=== PATIENT | female | born 1985 | race Hispanic/Latino ===

== ENCOUNTER 2016-11-24 01:00 | Emergency (ER) | payer OTHER ==
[2016-11-24 01:25] VITALS: O2SAT 100
--- NOTE | 2016-11-24 01:48 | C.PDOC ---
History Of Present Illness 31 year old female who presents to the ER after she was out drinking at a bar and fell, sustaining abrasions to the bilateral knees and a cut to the left cheek. is accompanied patient; however, states he was not there at the time of the fall. Patient denies LOC, nausea, or vomiting. Time Seen by Provider: 11/24/16 01:21 Chief Complaint (Nursing): Trauma History Per: Patient History/Exam Limitations: no limitations Onset/Duration Of Symptoms: Hrs Current Symptoms Are (Timing): Still Present Location Of Injury: Right: Knee, Left: Face (Cheek), Knee Quality Of Symptoms: Other (Abrasions) Recent travel outside of the [place]: No Past Medical History Reviewed: Historical Data, Nursing Documentation, Vital Signs Vital Signs: Last Vital Signs Temp 98.1 F 11/24/16 02:03 Pulse 88 11/24/16 02:03 Resp 20 11/24/16 02:03 BP 111/66 11/24/16 02:03 Pulse Ox 100 11/24/16 02:25 - Medical History PMH: No Chronic Diseases Surgical History: No Surg Hx Family History: States: Unknown Family Hx - Social History Hx Alcohol Use: Yes Hx Substance Use: No - Immunization History Hx Tetanus Toxoid Vaccination: No Hx Influenza Vaccination: No Hx Pneumococcal Vaccination: No Review Of Systems Gastrointestinal: Negative for: Nausea, Vomiting Skin: Positive for: Other (Abrasion, Laceration) Neurological: Negative for: Headache, Other (LOC) Physical Exam - Physical Exam Appears: Non-toxic, Other (ETOH on breath) Skin: Warm, Dry Head: Normacephalic, Other (0.5 cm linear laceration and abrasion with no active bleeding to left cheek) Eye(s): bilateral: Normal Inspection, PERRL, EOMI Nose: Normal, No Epistaxis, No Tenderness Oral Mucosa: Moist, No Trismus Tongue: Normal Appearing, No Swelling, No Bite Lips: Normal Appearing, No Abrasion, No Laceration Teeth: Normal Dentition Neck: Normal, No Midline Cervical Tenderness, No Paracervical Tenderness, Supple Chest: Symmetrical Cardiovascular: Rhythm Regular Respiratory: Normal Breath Sounds, No Accessory Muscle Use Extremity: Normal ROM (x4), No Deformity, No Swelling, Other (Abrasions to the bilateral knees) Neurological/Psych: Oriented x3, Normal Speech ED Course And Treatment O2 Sat by Pulse Oximetry: 100 (Room air) Pulse Ox Interpretation: Normal Laceration - Laceration Repair Left cheek Wound Length (In cm): 0.5 Description Of Wound: Linear Wound Cleansed With: Sterile Saline Wound Examination: Irrigated With Saline, No FB With Wound Exploration Wound Closure: Skin Glue (Dermabond) Wound Complexity: Simple Medical Decision Making Medical Decision Making: Patient with lac s.p fall Wound irrigated with NS. Wound edges approximated and dermabond applied Patient is alert and oriented with steady gait; accompanies patient and will take her home Disposition Counseled Patient/Family Regarding: Diagnosis, Need For Followup - Disposition Disposition: HOME/ ROUTINE Disposition Time: 01:46 Condition: STABLE Additional Instructions: Skin glue was used to close your wound, do not apply ointment to area as it may dissolve glue. Glue patch will gradually fall off in few days. Instructions: Skin Adhesive Care (ED) Forms: [employer] (Bulgarian) - POA Present On Arrival: None - Clinical Impression Clinical Impression: Facial laceration, Alcohol intoxication - Scribe Statement The provider has reviewed the documentation as recorded by the Scribelizabeth Vasquez All medical record entries made by the Scribe were at my direction and personally dictated by me. I have reviewed the chart and agree that the record accurately reflects my personal performance of the history, physical exam, medical decision making, and the department course for this patient. I have also personally directed, reviewed, and agree with the discharge instructions and disposition.
[2016-11-24 02:06] VITALS: BP 111/66; PULSE 88; RESP 20; TEMP 98.1
== END 2016-11-24 02:10 | disposition home or self-care (01) ==
LOC: C.ER 01:00
DX: S01.412A Laceration without foreign body of left cheek and temporomandibular area, initial encounter (principal); S80.212A Abrasion, left knee, initial encounter; S80.211A Abrasion, right knee, initial encounter; W18.30XA Fall on same level, unspecified, initial encounter; Y92.89 Other specified places as the place of occurrence of the external cause; F10.129 Alcohol abuse with intoxication, unspecified; Y90.9 Presence of alcohol in blood, level not specified